=== PATIENT | female | born 2000 | race Caucasian/White ===

== ENCOUNTER 2020-11-06 13:57 | Observation (INO) | payer MEDICAID, OTHER ==
[~2020-11-06] VITALS: Ht 162.6 cm; Wt 116.6 kg
[2020-11-06 14:32] LABS: Urine Bacteria FEW /hpf (None Seen); Urine Blood 2+ /uL (Negative); Urine Mucus FEW (None Seen); Urine Specific Gravity 1.021 (1.001-1.035); Urine WBC 204 /hpf (0 - 5); Urine WBC Clumps PRESENT /hpf (None Seen)
[2020-11-06 14:53] VITALS: BP 138/79
[2020-11-06] MEDS ORDERED: ASPI1TAB19 PO (15:52)
[2020-11-06] MEDS ORDERED: PREN-96 PO (15:53)
[2020-11-06] MEDS ORDERED: LACTATED RINGER'S 1,000 ML IV ONE (16:00)
[2020-11-06] MEDS ORDERED: ceFAZolin 1GM/50ML 50 ML IV ONE (16:00)
[2020-11-06] MEDS ORDERED: ONDANSETRON HCL 4 MG/2 ML VIAL IV ONE (16:00)
[2020-11-06] MEDS ORDERED: NITR-87 PO (20:30)
== END 2020-11-06 21:12 | disposition home or self-care (01) ==
LOC: ER 13:57 → LDRP 14:55 → ER 14:55
PROVIDERS: ADMIT Obstetrics & Gynecology; ATTEND Obstetrics & Gynecology
DX: O23.42 Unspecified infection of urinary tract in pregnancy, second trimester (principal); O21.2 Late vomiting of pregnancy; Z87.442 Personal history of urinary calculi; Z3A.23 23 weeks gestation of pregnancy; Z79.899 Other long term (current) drug therapy
CPT/HCPCS: 59025; 76775; 81001; 81002; 96361; 96365; 99284; G0378; J0690; J2405; 96360